=== PATIENT | male | born 1950 | race Caucasian/White ===

== ENCOUNTER 2016-08-23 19:20 | Emergency (ER) | payer OTHER ==
[~2016-08-23] VITALS: Ht 175.3 cm; Wt 83.9 kg
[2016-08-23] MEDS ORDERED: Famotidine 20 MG/ 2ML VIAL IVP ONE (19:30)
[2016-08-23 19:31] VITALS: BP 159/94
[2016-08-23 19:57] LABS: BASOPHILS % (AUTO) 0.8 % (0.0-2.0); EOSINOPHILS % (AUTO) 0.1 % (0.0-3.0); LYMPHOCYTES % (AUTO) 11.1 % (20.0-45.0); MEAN CORPUSCULAR HEMOGLOBIN 32.2 PG (27.0-31.0); MEAN CORPUSCULAR HGB CONC 36.3 G/DL (32.0-36.0); MEAN CORPUSCULAR VOLUME 89 FL (80-99); MEAN PLATELET VOLUME 7.4 FL (6.5-10.1); MONOCYTES % (AUTO) 5.1 % (1.0-10.0); NEUTROPHILS % (AUTO) 82.8 % (45.0-75.0); PLATELET COUNT 168 K/UL (150-450); RED BLOOD COUNT 4.44 M/UL (4.70-6.10); RED CELL DISTRIBUTION WIDTH 11.8 % (11.6-14.8); WHITE BLOOD COUNT 9.2 K/UL (4.8-10.8)
[2016-08-23 20:12] LABS: CALCIUM 9.3 mg/dL (8.6-10.2); CREATININE 1.3 mg/dL (0.7-1.2); GLOMERULAR FILTRATION RATE 55.2 mL/min (>60); POTASSIUM 3.6 mEQ/L (3.4-4.9); TOTAL PROTEIN 6.7 g/dL (6.6-8.7)
--- NOTE | 2016-08-23 20:38 | Emergency Room Report ---
History of Present Illness General Chief Complaint: Dyspnea/Respdistress Source: Patient, EMS (ALONZO GIFFORD M.D.) Present Illness HPI 66YOM BIBEMS profusely vomiting food. Patient endorsed eating sushi about an hour earlier. He states initially felt "sweaty", dizzy, nauseated and called EMS - started vomiting on the way with EMS. Denies previous abd/pelvic surgery. States had stress test last year and visit with Arborist Representative who did NOT recommend angiogram at that time. Has HTN, HLD - takes meds at night. No previous AMI. (ALONZO GIFFORD M.D.) Allergies: Coded Allergies: No Known Allergies (Unverified , 08/23/16) Patient History Past Medical History: HTN, other - HLD Past Surgical History: none Pertinent Family History: none Social History: Denies: alcohol use, drug use, smoking Immunizations: UTD Reviewed Nursing Documentation: PMH: Agreed, PSxH: Agreed (ALONZO GIFFORD M.D.) Nursing Documentation-PMH Past Medical History: No History, Except For Hx Hypertension: Yes (ALONZO GIFFORD M.D.) Review of Systems All Other Systems: negative except mentioned in HPI (ALONZO GIFFORD M.D.) Physical Exam Vital Signs Date Time Temp Pulse Resp B/P Pulse Ox O2 Delivery O2 Flow Rate FiO2 08/23/16 19:21 61 20 194/109 100 Non-Rebreather 15.0 08/23/16 19:31 98.6 Sp02 EP Interpretation: reviewed, abnormal General Appearance: normal inspection, well appearing, no apparent distress, alert Head: normocephalic, atraumatic Eyes: bilateral eye EOMI, bilateral eye PERRL ENT: normal ENT inspection, hearing grossly normal, normal voice Neck: normal inspection, full range of motion, supple, no bony tend Respiratory: normal inspection, lungs clear, normal breath sounds, no respiratory distress, no retraction, no wheezing Cardiovascular #1: regular rate, rhythm, no edema Gastrointestinal: normal inspection, normal bowel sounds, non tender, soft, no mass Genitourinary: no CVA tenderness Neurologic: normal inspection, alert, oriented x3, responsive, bss solution architect III-XII nml as tested, motor strength/tone normal, speech normal Psychiatric: normal inspection, judgement/insight normal, mood/affect normal Skin: normal inspection, normal color, no rash (ALONZO GIFFORD M.D.) Medical Decision Making Diagnostic Impression: Primary Impression: Nausea & vomiting Qualified Codes: R11.14 - Bilious vomiting Additional Impressions: Diaphoresis HELLEN (acute kidney injury) ER Course Labs: No leuks. H&H stable. Mild HELLEN. Troponin 0. ECG is NSR. No ischemia. Vomiting ceased. Abd remains NT, ND. Not surgical. Was hydrated with IVF for mild HELLEN Still c/o "not feeling good." Will endorse to Dr Do for 2nd troponin at midnight (ALONZO GIFFORD M.D.) ER Course Please see the does note by Dr. Gifford. The patient presented with vomiting and looked quite ill. He does have cardiac risk factors but treadmill last year was normal. Initial troponin was negative. Dr. De Guzman wanted to repeat a troponin. In the interim the patient had another episode of nausea and was treated with Zofran. The repeat troponin is negative. The patient states that he had an abnormal thallium treadmill last year. Because that he was referred to screen printing stencil preparer. She specifically evaluated him for the possibility of having an angiogram. She felt that this was not indicated as the patient exercises vigorously daily. Earlier today the patient ran 3 miles along with rocking during that distance to. He had no symptoms during that time. After drinking 2 glasses of green tea and eating sushi he started to feel malaise. He was dyspneic, had tingling in his hands, felt that he was dying and at that time started becoming diaphoretic and having nausea. He denies having any chest pain or palpitations during that time. He reports that he had significant evaluation for vertigo in the past. His screen printing stencil preparer feels that her symptoms are related to being "dry". She reports that he had positive orthostatic changes. He has been taking and fluids but feels that he is dehydrated may be a component today. Based on his history and that troponins it's felt that the patient's cardiac risk is low. I offered to the patient that he could admitted for observation to the hospital but he feels better at this time. He like to be observed at home and realizes the importance of being evaluated by his physicians soon. He will call them in the morning. The patient is stable for outpatient observation and treatment. Laboratory Tests Test 08/23/16 19:46 08/24/16 00:03 White Blood Count 9.2 K/UL (4.8-10.8) Red Blood Count 4.44 M/UL (4.70-6.10) L Hemoglobin 14.3 G/DL (14.2-18.0) Hematocrit 39.5 % (42.0-52.0) L Mean Corpuscular Volume 89 FL (80-99) Mean Corpuscular Hemoglobin 32.2 PG (27.0-31.0) H Mean Corpuscular Hemoglobin Concent 36.3 G/DL (32.0-36.0) H Red Cell Distribution Width 11.8 % (11.6-14.8) Platelet Count 168 K/UL (150-450) Mean Platelet Volume 7.4 FL (6.5-10.1) Neutrophils (%) (Auto) 82.8 % (45.0-75.0) H Lymphocytes (%) (Auto) 11.1 % (20.0-45.0) L Monocytes (%) (Auto) 5.1 % (1.0-10.0) Eosinophils (%) (Auto) 0.1 % (0.0-3.0) Basophils (%) (Auto) 0.8 % (0.0-2.0) Sodium Level 134 mEQ/L (135-145) L Potassium Level 3.6 mEQ/L (3.4-4.9) Chloride Level 93 mEQ/L (98-107) L Carbon Dioxide Level 21 mEQ/L (20-30) Anion Gap 20 (5-15) H Blood Urea Nitrogen 14 mg/dL (7-23) Creatinine 1.3 mg/dL (0.7-1.2) H Estimate Glomerular Filtration Rate 55.2 mL/min (>60) Glucose Level 175 mg/dL (74-106) H Calcium Level 9.3 mg/dL (8.6-10.2) Total Bilirubin 0.7 mg/dL (0.0-1.2) Aspartate Amino Transferase (AST) 17 U/L (5-40) Alanine Aminotransferase (ALT) 19 U/L (3-41) Alkaline Phosphatase 47 U/L (40-129) Troponin I < 0.30 ng/mL (<=0.30) < 0.30 ng/mL (<=0.30) Total Protein 6.7 g/dL (6.6-8.7) Albumin 4.5 g/dL (3.5-5.2) Globulin 2.2 g/dL Albumin/Globulin Ratio 2.0 (1.0-2.7) (Peter Do M.D.) EKG Diagnostic Results Rate: normal Rhythm: NSR ST Segments: no acute changes ASA given to the pt in ED: No (ALONZO GIFFORD M.D.) Rhythm Strip Diag. Results EP Interpretation: yes Rate: 66 Rhythm: NSR, no PVC's, no ectopy (ALONZO GIFFORD M.D.) Last Vital Signs Date Time Temp Pulse Resp B/P Pulse Ox O2 Delivery O2 Flow Rate FiO2 08/23/16 19:31 61 20 Room Air 15.0 08/23/16 19:31 98.6 159/94 100 Status: improved (ALONZO GIFFORD M.D.) Last Vital Signs Date Time Temp Pulse Resp B/P Pulse Ox O2 Delivery O2 Flow Rate FiO2 08/24/16 01:50 98.6 56 20 133/79 100 Room Air 15.0 Status: improved (Peter Do M.D.) Disposition: HOME, SELF-CARE Condition: Improved Scripts Lorazepam* (ATIVAN*) 0.5 Mg Tablet 0.5 MG ORAL THREE TIMES A DAY, #6 TAB Prov: Peter Do M.D. 08/24/16 Ondansetron Odt* (ZOFRAN ODT*) 4 Mg Tab.rapdis 4 MG ORAL TID Y for Nausea & Vomiting, #30 TAB 0 Refills Prov: ALONZO GIFFORD M.D. 08/23/16 Famotidine (PEPCID) 20 Mg Tablet 20 MG ORAL BID for 7 Days, #14 TAB 0 Refills Prov: ALONZO GIFFORD M.D. 08/23/16 Referrals: NON PHYSICIAN (PCP) ALONZO GIFFORD M.D. Aug 23, 2016 20:38 Peter Do M.D. Aug 24, 2016 01:14
[2016-08-23 20:48] LABS: TROPONIN I < 0.30 ng/mL (<=0.30)
[2016-08-23 21:20] VITALS: BP 146/90
[2016-08-23] MEDS ORDERED: PEPCID20 MG ORAL (21:20)
[2016-08-23] MEDS ORDERED: ZOFRAN ODT4 MG ORAL (21:20)
[2016-08-23 23:19] VITALS: BP 133/79
[2016-08-24 01:07] LABS: TROPONIN I < 0.30 ng/mL (<=0.30)
[2016-08-24] MEDS ORDERED: ATIVAN0.5 MG ORAL (01:29)
[2016-08-24 01:34] VITALS: BP 129/81
[2016-08-24 01:50] VITALS: BP 133/79
== END 2016-08-24 01:50 | disposition home or self-care (01) ==
LOC: EDBD 19:20 → EMR 19:55
DX: R11.14 Bilious vomiting (principal); R61 Generalized hyperhidrosis; N17.9 Acute kidney failure, unspecified; I10 Essential (primary) hypertension; E78.5 Hyperlipidemia, unspecified
CPT/HCPCS: 36415; 80053; 84484; 85025; 96360; 96374; 96375; 99284; J2405; S0028